=== PATIENT | male | born 1970 | race African-American/Black ===

== ENCOUNTER 2017-02-05 03:55 | Emergency (ER) | payer BC ==
[~2017-02-05] VITALS: Ht 170.1 cm; Wt 90.7 kg
[~2017-02-05 03:55] MED LIST: ACIPHEX20 MG PO; ALLEGRA60 M2 PO; AMOXICILLIN500 M2 PO; ANUSOL-HC25 MG RC; ATARAX,VISTARIL50 MG PO; ATARAX25 MG PO; BENADRYL25 M2 PO; BENADRYL25 MG PO; BENADRYL50 MG PO; CHANTIX STARTER1 TAB PO; CHANTIX1 M1 PO; CIPROFLOXACIN500 MG PO; EPIPEN 2-PAK1 MG/ML IJ; LEVOFLOXACIN500 MG PO; LEXAPRO10 MG PO; MEDROL DOSEPAK4 MG PO; NKHM; NORFLEX100 MG PO; PERCOCET 325 MG1 TA7 PO; PREDNICOT20 MG PO; PREDNISONE10 MG PO; PREDNISONE20 M1 PO; TRAMADOL HCL50 MG PO; ULTRAM50 MG PO; VICODIN 500 MG-1 TAB PO; VICODIN ES 7501 TAB PO; VICODIN1 TAB PO; ZYRTEC10 MG PO
[2017-02-05] MEDS ORDERED: ZYRTEC10 M3 PO (04:04)
[2017-02-05] MEDS ORDERED: ZANTAC 150150 MG PO (04:04)
[2017-02-05] MEDS ORDERED: BENADRYL ALLERG25 M5 PO (04:05)
[2017-02-05] MEDS ORDERED: PREDNISONE50 MG PO (05:29)
[2017-02-05] MEDS ORDERED: ATARAX,VISTARIL10 MG PO (05:29)
== END 2017-02-05 06:04 | disposition home or self-care (01) ==
LOC: ED 03:55
DX: T78.40XA Allergy, unspecified, initial encounter (principal); F17.200 Nicotine dependence, unspecified, uncomplicated; Z98.890 Other specified postprocedural states; Z79.899 Other long term (current) drug therapy; Z91.013 Allergy to seafood; Y92.9 Unspecified place or not applicable

== ENCOUNTER 2017-05-24 17:33 | Emergency (ER) | payer BC ==
[~2017-05-24] VITALS: Wt 91.6 kg
[~2017-05-24 17:33] MED LIST changes: +ATARAX,VISTARIL10 MG PO; +BENADRYL ALLERG25 M5 PO; +PREDNISONE50 MG PO; +ZANTAC 150150 MG PO; +ZYRTEC10 M3 PO
[2017-05-24 17:56] LABS: BASO # 0.1 10*3/uL (0.0-0.1); BASO % 0.6 % (0.0-1.0); EOS # 0.2 10*3/uL (0.0-0.4); EOS % 2.2 % (1.0-4.0); HEMATOCRIT 49.2 % (42.0-52.0); HEMOGLOBIN 16.9 g/dl (14.0-18.0); LYMPH # 3.2 10*3/uL (1.3-4.4); LYMPH % 38.8 % (27.0-41.0); MEAN CELL VOLUME 94.8 fl (80.0-94.0); MEAN CORPUSCULAR HGB 32.6 pg (27.0-31.0); MEAN CORPUSCULAR HGB CONC 34.3 g/dl (33.0-37.0); MEAN PLATELET VOLUME 10.3 fl (9.6-12.3); MONO % 12.6 % (3.0-9.0); NEUT # 3.7 10*3/uL (2.3-7.9); NEUT % 45.6 % (47.0-73.0); PLATELET COUNT AUTOMATED 190 10*3/uL (130-400); RED BLOOD COUNT 5.19 10*6/uL (4.50-5.90); RED CELL DISTRI WIDTH 12.7 % (0-14.5); WHITE BLOOD COUNT 8.2 10*3/uL (4.8-10.8)
[2017-05-24 18:10] LABS: BUN 9 mg/dl (7-24); CHLORIDE 108 mmol/L (98-107); CREATININE 0.89 mg/dL (0.70-1.30); POTASSIUM 3.9 mmol/L (3.5-5.1); SGOT/AST 18 IU/L (3-35); SGPT/ALT 16 U/L (12-78); SODIUM 143 mmol/L (136-145); TOTAL PROTEIN 7.8 gm/dL (6.4-8.2)
[2017-05-24 18:11] LABS: ALKALINE PHOSPHATASE 80 U/L (45-117)
[2017-05-24 18:30] LABS: BILIRUBIN NEGATIVE (NEGATIVE); BLOOD NEGATIVE (NEGATIVE); CLARITY SL CLOUDY (CLEAR); COLOR YELLOW (YELLOW); GLUCOSE NEGATIVE (NEGATIVE); KETONE NEGATIVE (NEGATIVE); LEUKO ESTERASE NEGATIVE (NEGATIVE); NITRITE NEGATIVE (NEGATIVE)
[2017-05-24 18:36] LABS: BACTERIA 3+; EPITHELIAL CELLS 0-2; MUCOUS TRACE; RBC 0-2 rbc/hpf (0-2)
== END 2017-05-24 18:40 | disposition home or self-care (01) ==
LOC: ED 17:33
PROVIDERS: Emergency Medicine
DX: R14.0 Abdominal distension (gaseous) (principal); R19.7 Diarrhea, unspecified; R10.9 Unspecified abdominal pain; Z91.013 Allergy to seafood; Z79.899 Other long term (current) drug therapy

== ENCOUNTER 2017-06-12 15:43 | Emergency (ER) | payer BC ==
[~2017-06-12] VITALS: Wt 98.0 kg
== END 2017-06-12 18:07 | disposition home or self-care (01) ==
LOC: ED 15:43
DX: T78.40XA Allergy, unspecified, initial encounter (principal); Z91.018 Allergy to other foods; Z91.013 Allergy to seafood; Z79.899 Other long term (current) drug therapy; X58.XXXA Exposure to other specified factors, initial encounter

== ENCOUNTER 2017-08-19 09:38 | Emergency (ER) | payer BC ==
[~2017-08-19] VITALS: Ht 167.6 cm; Wt 94.3 kg
[2017-08-19] MEDS ORDERED: EPIPEN 2-P0.3 MG/0.3 IJ (09:50)
[2017-08-19] MEDS ORDERED: PREDNISONE10 MG PO (09:50)
== END 2017-08-19 11:42 | disposition home or self-care (01) ==
LOC: ED 09:38
DX: T78.1XXA Other adverse food reactions, not elsewhere classified, initial encounter (principal); L50.9 Urticaria, unspecified; R03.0 Elevated blood-pressure reading, without diagnosis of hypertension; F17.200 Nicotine dependence, unspecified, uncomplicated; Z91.018 Allergy to other foods; Z91.013 Allergy to seafood; Z79.899 Other long term (current) drug therapy; X58.XXXA Exposure to other specified factors, initial encounter

== ENCOUNTER → 2018-10-20 | Outpatient (CLI) | payer BC ==
[~2018-10-20] MED LIST changes: +EPIPEN 2-P0.3 MG/0.3 IJ
[2018-10-22 18:05] LABS: ALTERNARIA ALTERNATA, IGE <0.10 kU/L (Class 0); ASPERGILLUS FUMIGATU, IGE <0.10 kU/L (Class 0); BERMUDA GRASS, IGE 0.16 kU/L (Class 0/I); BIRCH, COMMON SILVER IGE <0.10 kU/L (Class 0); CODFISH, IGE 1.93 kU/L (Class III); CORN, IGE 0.14 kU/L (Class 0/I); D FARINAE MITE 4.79 kU/L (Class IV); D PTERONYSSINUS 4.89 kU/L (Class IV); DOG DANDER, IGE 0.34 kU/L (Class I); EGG WHITE, IGE <0.10 kU/L (Class 0); IMMUNOGLOBULIN IgE 002170 2173 IU/mL (0-100); MAPLE LEAF SYCAMORE, IGE 0.13 kU/L (Class 0/I); MAPLE/BOX ELDER, IGE 0.15 kU/L (Class 0/I); MOUSE URINE IGE <0.10 kU/L (Class 0); PEANUT, IGE 3.86 kU/L (Class III); PENICILLIUM CHRYSOGENUM, IGE <0.10 kU/L (Class 0); ROUGH PIGWEED, IGE 0.13 kU/L (Class 0/I); SHEEP SORREL (DOCK), IGE 0.16 kU/L (Class 0/I); SHORT RAGWEED, IGE 0.13 kU/L (Class 0/I); SOYBEAN, IGE <0.10 kU/L (Class 0); TIMOTHY, IGE 0.81 kU/L (Class II); WALNUT TREE, IGE 0.11 kU/L (Class 0/I); WHEAT, IGE 1.01 kU/L (Class II); WHITE ASH, IGE 1.61 kU/L (Class III); WHITE MULBERRY, IGE 0.13 kU/L (Class 0/I); WHITE OAK, IGE <0.10 kU/L (Class 0)
== END | disposition home or self-care (01) ==
LOC: LAB 17:14
PROVIDERS: Student in an Organized Health Care Education/Training Program
DX: E55.9 Vitamin D deficiency, unspecified (principal); Z91.018 Allergy to other foods